=== PATIENT | female | born 1980 | race Caucasian/White ===

== ENCOUNTER 2017-11-10 14:26 | Inpatient (IN) | payer MEDICARE, OTHER ==
[~2017-11-10] VITALS: Ht 157.5 cm; Wt 91.6 kg
--- NOTE | 2017-11-10 14:39 | NUR ---
PT NOT IN WAITING ROOM WHEN CALLED FOR TRIAGE.
--- NOTE | 2017-11-10 15:30 | NUR ---
PATIENT IS SITTING UP ON THE GURNEY WITH NO COMPLAINS AT THIS TIME. SHE IS AMBULATORY WITH STEADY GAIT.
[2017-11-10] MEDS ORDERED: CLOZ25TA4 PO (15:31)
[2017-11-10] MEDS ORDERED: CARV3.122 PO (15:31)
[2017-11-10] MEDS ORDERED: SERT50TA PO (15:31)
[2017-11-10] MEDS ORDERED: OMEP20CA10 PO (15:31)
[2017-11-10] MEDS ORDERED: MAGN400T41 PO (15:31)
[2017-11-10] MEDS ORDERED: DIVA500T7 PO (15:31)
[2017-11-10] MEDS ORDERED: ROSU20TA PO (15:31)
[2017-11-10] MEDS ORDERED: FURO20TA4 PO (15:31)
[2017-11-10] MEDS ORDERED: METF500T6 PO (15:31)
[2017-11-10] MEDS ORDERED: CLOZ100T32 PO (15:31)
[2017-11-10 15:55] LABS: BASOPHILS # (AUTO) 0.1 K/uL (0.0-8.0); BASOPHILS % (AUTO) 0.8 % (0.0-2.0); EOSINOPHILS # (AUTO) 0.1 K/uL (0.0-0.7); HEMATOCRIT 42.6 % (31.2-41.9); HEMOGLOBIN 14.5 g/dL (10.9-14.3); LYMPHOCYTES # (AUTO) 1.9 K/uL (20.0-40.0); LYMPHOCYTES % (AUTO) 24.8 % (20.5-51.5); MEAN CORPUSCULAR HEMOGLOBIN 33.5 uug (24.7-32.8); MEAN CORPUSCULAR HGB CONC 34 g/dL (32.3-35.6); MONOCYTES # (AUTO) 0.4 K/uL (2.0-10.0); MONOCYTES % (AUTO) 5.8 % (0.0-11.0); NEUTROPHILS # (AUTO) 5.1 K/uL (1.8-8.9); NEUTROPHILS % (AUTO) 67.6 % (38.5-71.5); PLATELET COUNT (AUTO) 267 K/uL (179-408); RED BLOOD CELL COUNT(AUTO) 4.31 MIL/uL (3.63-4.92); WHITE BLOOD COUNT (AUTO) 7.6 K/uL (3.8-11.8)
[2017-11-10 16:02] LABS: BILIRUBIN,DIRECT 0.1 mg/dL (0.0-0.2); BILIRUBIN,TOTAL 0.5 mg/dL (0.2-1.0); CREATININE 0.7 mg/dL (0.6-1.3); POTASSIUM 3.3 mmol/L (3.5-5.1); TOTAL PROTEIN, SERUM 7.3 g/dL (6.4-8.2)
--- NOTE | 2017-11-10 16:04 | NUR ---
PATIENT ADIMENTLY REFUSES IV. NO IV MEDS OR FLUIDS ORDERED AT THIS TIME. DR NG NOTIFIED.
--- NOTE | 2017-11-10 16:37 | NUR ---
PATIENT IS EATING COOKIES IN HER ROOM.
--- NOTE | 2017-11-10 17:40 | NUR ---
PATIENT IS IN THE ROOM ON THE GURNEY AWAKE AND ALERT.
--- NOTE | 2017-11-10 19:12 | NUR ---
Received report from Teresa LA. Assumed care of patient.
--- NOTE | 2017-11-10 19:12 | NUR ---
REPORT GIVEN TO GPYSY LA
[2017-11-10 20:03] LABS: *BLOOD, URINE NEGATIVE (NEGATIVE); *CLARITY,URINE SLIGHTLY CLOUDY (CLEAR); *COLOR,URINE DARK YELLOW (YELLOW); *KETONES,URINE 2+ (NEGATIVE); *PROTEIN,URINE 1+ (NEGATIVE); LEUKOCYTE ESTERASE ,URINE NEGATIVE (NEGATIVE); NITRITE, URINE POSITIVE (NEGATIVE); UGLUCOSE NEGATIVE (NEGATIVE)
[2017-11-10 20:05] LABS: *BILIRUBIN,URIN 2+ (NEGATIVE)
[2017-11-10 20:06] LABS: BACTERIA,URINE NONE SEEN /HPF (NONE SEEN); RBC,URINE 0-3 /HPF (0-3); SQUAMOUS EPITHELIAL CELL,UR FEW /HPF (NONE SEEN); WBC,URINE 0-3 /HPF (0-3)
--- NOTE | 2017-11-10 20:29 | NUR ---
Passed report to Bhavana LA.
[2017-11-10] MEDS ORDERED: ACETAMINOPHEN 325 MG TABLET PO PRN (21:00)
[2017-11-10] MEDS ORDERED: CLOZAPINE 25 MG TABLET PO SCH (21:00)
[2017-11-10] MEDS ORDERED: MAGNESIUM HYDROXIDE 30 ML LIQUID UDC PO PRN (21:00)
[2017-11-10] MEDS ORDERED: CLOZAPINE 100 MG TABLET PO SCH (21:00)
[2017-11-10] MEDS ORDERED: Medication Not On Formulary EA (Rosuvastatin Calcium (Crestor) 20 MG) PO SCH (21:00)
[2017-11-10 21:09] VITALS: BP 140/84
[2017-11-10] MEDS: MAGNESIUM OXIDE 400 MG TABLET PO SCH (22:29)
[2017-11-10] MEDS: DOCUSATE SODIUM 100 MG CAPSULE PO SCH (22:29)
[2017-11-11 04:00] VITALS: BP 145/81
[2017-11-11 06:48] LABS: BASOPHILS % (AUTO) 0.5 % (0.0-2.0); EOSINOPHILS # (AUTO) 0.1 K/uL (0.0-0.7); EOSINOPHILS % (AUTO) 1.4 % (0.0-7.0); HEMATOCRIT 43.6 % (31.2-41.9); HEMOGLOBIN 14.5 g/dL (10.9-14.3); LYMPHOCYTES # (AUTO) 1.7 K/uL (20.0-40.0); LYMPHOCYTES % (AUTO) 22.8 % (20.5-51.5); MEAN CORPUSCULAR HEMOGLOBIN 33.1 uug (24.7-32.8); MEAN CORPUSCULAR HGB CONC 33 g/dL (32.3-35.6); MEAN CORPUSCULAR VOLUME 99.2 fL (75.5-95.3); MONOCYTES # (AUTO) 0.4 K/uL (2.0-10.0); MONOCYTES % (AUTO) 5.7 % (0.0-11.0); NEUTROPHILS # (AUTO) 5.1 K/uL (1.8-8.9); NEUTROPHILS % (AUTO) 69.6 % (38.5-71.5); PLATELET COUNT (AUTO) 289 K/uL (179-408); RED BLOOD CELL COUNT(AUTO) 4.39 MIL/uL (3.63-4.92); WHITE BLOOD COUNT (AUTO) 7.3 K/uL (3.8-11.8)
--- NOTE | 2017-11-11 07:08 | NUR ---
PT ALERT, ORIENTED BUT SOMETIMES OFF , PT DIDN'T TAKE MEDS, PT JUST STARE THE MEDS HOLDING AND TOUCHING THE PILLS AND DIDN'T TAKE IT. PT AMBULATORY, DENIES ANY PAIN OR VOMITING OVERNIGHT.VSS,AFEBRILE.
[2017-11-11 07:22] LABS: THYROID STIMULATING HORMONE 2.375 mIU/mL (0.358-3.740)
--- NOTE | 2017-11-11 07:35 | NUR ---
PT ALERT, ORIENTED BUT SOMETIMES OFF , PT TAKE MEDS, PT AMBULATORY, DENIES ANY PAIN OR VOMITING .VSS,AFEBRILE.CALL LIGHT WITH IN REACH
[2017-11-11] MEDS: METFORMIN HCL 500 MG TABLET PO SCH ×2 (07:38→17:08)
[2017-11-11] MEDS: PANTOPRAZOLE SODIUM 40 MG TABLET.DR PO SCH (07:38)
[2017-11-11] MEDS: CARVEDILOL 3.125 MG TABLET PO SCH ×2 (08:02→16:08)
[2017-11-11] MEDS: SERTRALINE HCL 50 MG TABLET PO SCH (08:02)
[2017-11-11] MEDS: FUROSEMIDE 20 MG TABLET PO SCH (08:02)
[2017-11-11 08:50] LABS: BILIRUBIN,TOTAL 0.5 mg/dL (0.2-1.0); CREATININE 0.7 mg/dL (0.6-1.3); MAGNESIUM 1.9 mg/dL (1.8-2.4); POTASSIUM 3.4 mmol/L (3.5-5.1); TOTAL PROTEIN, SERUM 7.2 g/dL (6.4-8.2)
[2017-11-11] MEDS: DIVALPROEX 500 MG TABLET.DR PO SCH ×2 (09:25→16:20)
[2017-11-11 11:01] VITALS: BP 129/97
[2017-11-11] MEDS ORDERED: POTASSIUM CHLORIDE 20 MEQ TAB.PRT.SR PO ONE (11:45)
[2017-11-11 15:00] VITALS: BP 107/62
--- NOTE | 2017-11-11 18:50 | NUR ---
PT SEEN BY DR BRO
--- NOTE | 2017-11-11 19:30 | NUR ---
RECEIVED PATIENT IN HER ROOM AWAKE VERBALLY RESPONSIVE, NO COMPLAIN OF ABDOMINAL PAIN AT THIS TIME. PATIENT STAY ON HER ROOM. CONT TO MONITOR,
[2017-11-11 20:00] VITALS: BP 125/96
[2017-11-11] MEDS: DOCUSATE SODIUM 100 MG CAPSULE PO SCH (20:38)
[2017-11-11] MEDS: ATORVASTATIN 40 MG TABLET PO SCH (20:39)
[2017-11-11] MEDS: MAGNESIUM OXIDE 400 MG TABLET PO SCH (20:55)
[2017-11-11] MEDS ORDERED: CLOZAPINE 100 MG TABLET PO SCH ×2 (21:00)
[2017-11-11] MEDS ORDERED: CLOZAPINE 25 MG TABLET PO SCH (21:00)
--- NOTE | 2017-11-12 05:52 | NUR ---
PATIENT SLEPT MOST OF THE NIGHT NO SOB NO CHEST PAIN, NO COMPLAIN OF PAIN, NO COMPLAIN OF ABDOMINAL PAIN, NO NAUSEA NOR VOMIITING NOTED, CONTINENT OF BOWEL AND BLADDER, KEPT COMFORTABLE, CALL LIGHT WITHIN REACH.
[2017-11-12] MEDS: PANTOPRAZOLE SODIUM 40 MG TABLET.DR PO SCH (06:17)
--- NOTE | 2017-11-12 07:35 | NUR ---
RECEIVED PATIENT IN HER BED SLEEPING VERBALLY RESPONSIVE, NO COMPLAIN OF ABDOMINAL PAIN AT THIS TIME. PATIENT STAY ON HER ROOM. CONT TO MONITOR, CALL LIGHT WITH IN REACH
[2017-11-12] MEDS: FUROSEMIDE 20 MG TABLET PO SCH (08:23)
[2017-11-12] MEDS: CARVEDILOL 3.125 MG TABLET PO SCH ×2 (08:23→16:03)
[2017-11-12] MEDS: SERTRALINE HCL 50 MG TABLET PO SCH (08:23)
[2017-11-12] MEDS: METFORMIN HCL 500 MG TABLET PO SCH ×2 (08:23→17:08)
[2017-11-12] MEDS: DIVALPROEX 500 MG TABLET.DR PO SCH ×2 (08:23→16:03)
[2017-11-12] MEDS: CLOZAPINE 100 MG TABLET PO SCH (08:27)
[2017-11-12] MEDS ORDERED: CLOZAPINE 25 MG TABLET PO SCH (09:00)
[2017-11-12 11:45] VITALS: BP 131/85
[2017-11-12 15:35] VITALS: BP 125/87
[2017-11-12 20:30] VITALS: BP 113/63
[2017-11-12] MEDS ORDERED: CLOZAPINE 100 MG TABLET PO SCH (21:00)
[2017-11-12] MEDS: MAGNESIUM OXIDE 400 MG TABLET PO SCH (22:23)
[2017-11-12] MEDS: ATORVASTATIN 40 MG TABLET PO SCH (22:23)
[2017-11-12] MEDS: DOCUSATE SODIUM 100 MG CAPSULE PO SCH (22:23)
[2017-11-13 04:00] VITALS: BP 131/92
[2017-11-13] MEDS: PANTOPRAZOLE SODIUM 40 MG TABLET.DR PO SCH (06:03)
--- NOTE | 2017-11-13 06:16 | NUR ---
PATIENT SLEPT GOOD LAST NIGHT, ASSISTED WITH TOILETING, AND HYGIENE, NO COMPLAIN OF ABDOMEN, ATE MEALS FAIRLY GOOD. CONT TO MONITOR.
[2017-11-13] MEDS: SERTRALINE HCL 50 MG TABLET PO SCH (08:17)
[2017-11-13] MEDS: CARVEDILOL 3.125 MG TABLET PO SCH ×2 (08:17→16:26)
[2017-11-13] MEDS: FUROSEMIDE 20 MG TABLET PO SCH (08:17)
[2017-11-13] MEDS: DIVALPROEX 500 MG TABLET.DR PO SCH ×3 (08:17→16:26)
[2017-11-13] MEDS: METFORMIN HCL 500 MG TABLET PO SCH ×2 (08:17→18:00)
[2017-11-13] MEDS: CLOZAPINE 100 MG TABLET PO SCH (08:23)
[2017-11-13] MEDS ORDERED: CHOLECALCIFEROL 1,000 UNIT TABLET PO SCH (09:00)
[2017-11-13 11:50] VITALS: BP 123/77
[2017-11-13] MEDS ORDERED: CLOZ100T PO ×2 (15:25)
[2017-11-13] MEDS ORDERED: DIVA500T2 PO (15:25)
[2017-11-13] MEDS ORDERED: ATOR20TA PO (15:25)
[2017-11-13] MEDS ORDERED: DOCU100C36 PO (15:25)
[2017-11-13] MEDS ORDERED: MAGN400O6 PO (15:25)
[2017-11-13] MEDS ORDERED: METF500T6 PO (15:25)
[2017-11-13] MEDS ORDERED: ACET325T53 PO (15:25)
[2017-11-13] MEDS ORDERED: CHOL10002 PO (15:25)
[2017-11-13 15:44] VITALS: BP 130/76
[2017-11-13 16:26] VITALS: BP 132/66
--- NOTE | 2017-11-13 19:57 | NUR ---
DISCHARGE PATIENT TO [facility] PER MD ORDERS
== END 2017-11-13 19:55 | DRG 693 ==
LOC: ER 14:27 → MED 20:33
PROVIDERS: ADMIT Internal Medicine; ATTEND Internal Medicine
DX: N20.0 Calculus of kidney (principal); G93.40 Encephalopathy, unspecified; E66.01 Morbid (severe) obesity due to excess calories; E88.09 Other disorders of plasma-protein metabolism, not elsewhere classified; F20.0 Paranoid schizophrenia; R16.0 Hepatomegaly, not elsewhere classified; E55.9 Vitamin D deficiency, unspecified; E87.6 Hypokalemia; D25.9 Leiomyoma of uterus, unspecified; F25.9 Schizoaffective disorder, unspecified; R10.9 Unspecified abdominal pain; E11.9 Type 2 diabetes mellitus without complications; D75.89 Other specified diseases of blood and blood-forming organs; E78.5 Hyperlipidemia, unspecified; Z68.36 Body mass index [BMI] 36.0-36.9, adult; I11.9 Hypertensive heart disease without heart failure; F17.210 Nicotine dependence, cigarettes, uncomplicated; F31.9 Bipolar disorder, unspecified
CPT/HCPCS: 36415; 70030-TC; 71045; 80164; 82306; 83605; 83690; 83735; 84100; 84443; 84703; 85025; 85730; 87040; 87086; 93005; A4663

== ENCOUNTER 2017-12-29 22:23 | Inpatient (IN) | payer MEDICARE, OTHER ==
[~2017-12-29] VITALS: Ht 157.5 cm; Wt 89.4 kg
[~2017-12-29 22:23] MED LIST: ACET325T53 PO; ATOR20TA PO; CARV3.122 PO; CHOL10002 PO; CLOZ100T PO; DIVA500T2 PO; DOCU100C36 PO; FURO20TA4 PO; MAGN400O6 PO; MAGN400T41 PO; METF500T6 PO; OMEP20CA10 PO; SERT50TA PO
--- NOTE | 2017-12-29 23:37 | NUR ---
HADOOP CONSULTANT AT BEDSIDE OBTAINING LAB SPECIMENS FOR TESTING
[2017-12-30 00:09] LABS: BASOPHILS # (AUTO) 0.1 K/uL (0.0-8.0); BASOPHILS % (AUTO) 0.9 % (0.0-2.0); EOSINOPHILS # (AUTO) 0.2 K/uL (0.0-0.7); EOSINOPHILS % (AUTO) 2.3 % (0.0-7.0); HEMATOCRIT 43.7 % (31.2-41.9); LYMPHOCYTES % (AUTO) 30.1 % (20.5-51.5); MEAN CORPUSCULAR HEMOGLOBIN 33.8 uug (24.7-32.8); MEAN CORPUSCULAR HGB CONC 34 g/dL (32.3-35.6); MEAN CORPUSCULAR VOLUME 98.6 fL (75.5-95.3); MONOCYTES # (AUTO) 0.6 K/uL (2.0-10.0); MONOCYTES % (AUTO) 5.8 % (0.0-11.0); NEUTROPHILS # (AUTO) 6.1 K/uL (1.8-8.9); NEUTROPHILS % (AUTO) 60.9 % (38.5-71.5); PLATELET COUNT (AUTO) 326 K/uL (179-408); RED BLOOD CELL COUNT(AUTO) 4.44 MIL/uL (3.63-4.92)
[2017-12-30 00:10] LABS: *BILIRUBIN,URIN NEGATIVE (NEGATIVE); *BLOOD, URINE 3+ (NEGATIVE); *CLARITY,URINE CLEAR (CLEAR); *COLOR,URINE YELLOW (YELLOW); *KETONES,URINE NEGATIVE (NEGATIVE); *PROTEIN,URINE NEGATIVE (NEGATIVE); *UROBILINOGEN,URINE 0.2 E.U./dl (NORMAL); LEUKOCYTE ESTERASE ,URINE NEGATIVE (NEGATIVE); NITRITE, URINE NEGATIVE (NEGATIVE); UGLUCOSE NEGATIVE (NEGATIVE)
[2017-12-30 00:13] LABS: BILIRUBIN,DIRECT 0.1 mg/dL (0.0-0.2); BILIRUBIN,TOTAL 0.2 mg/dL (0.2-1.0); CREATININE 0.7 mg/dL (0.6-1.3); POTASSIUM 3.2 mmol/L (3.5-5.1); TOTAL PROTEIN, SERUM 7.2 g/dL (6.4-8.2)
[2017-12-30 00:18] LABS: BACTERIA,URINE NONE SEEN /HPF (NONE SEEN); WBC,URINE 0-3 /HPF (0-3)
[2017-12-30 00:19] LABS: *URINE HCG, QUAL NEGATIVE (NEGATIVE); SQUAMOUS EPITHELIAL CELL,UR FEW /HPF (NONE SEEN)
--- NOTE | 2017-12-30 01:20 | NUR ---
PT REFUSES CT SCAN. MADE AWARE.
--- NOTE | 2017-12-30 02:33 | NUR ---
PT BEING ADMITTED TO [facility] FLOOR RM# [id number]. REPORT GIVEN TO ABHINAV MERCADO.
--- NOTE | 2017-12-30 02:47 | NUR ---
Received pt alert and disoriented to time and place. No s/s of distress noted at this time. Pertinent assessments done. BP noted to be elevated. Will call MD for orders. Unit orientation provided. Bed in low, locked position. Call light within reach. Will continue to monitor closely.
--- NOTE | 2017-12-30 02:50 | NUR ---
Pt. admitted to [facility], under care of Dr. YOUNG Belongs List completed
[2017-12-30 03:14] VITALS: BP 162/109
[2017-12-30] MEDS ORDERED: CLONIDINE HCL 0.1 MG TABLET PO PRN (04:15)
[2017-12-30 05:20] VITALS: BP 167/109
[2017-12-30] MEDS ORDERED: MAGNESIUM HYDROXIDE 30 ML LIQUID UDC PO PRN (05:45)
[2017-12-30] MEDS ORDERED: hydrALAZINE HCL 25 MG TABLET PO PRN (05:45)
[2017-12-30] MEDS ORDERED: ACETAMINOPHEN 325 MG TABLET PO PRN (05:45)
--- NOTE | 2017-12-30 06:00 | NUR ---
Pt is noted to be confused and restless at this time. Frequent reorientation and relaxation techniques provided. Pt refused morning medications and morning lab orders. Will endorse to day shift nurse accordingly.
[2017-12-30] MEDS ORDERED: PANTOPRAZOLE SODIUM 40 MG TABLET.DR PO SCH (07:00)
[2017-12-30] MEDS: CARVEDILOL 3.125 MG TABLET PO SCH ×2 (08:43→16:03)
[2017-12-30] MEDS: DIVALPROEX 500 MG TABLET.DR PO SCH ×3 (08:43→16:02)
[2017-12-30 09:00] VITALS: BP 99/47
[2017-12-30] MEDS ORDERED: FUROSEMIDE 20 MG TABLET PO SCH (09:00)
[2017-12-30] MEDS ORDERED: SERTRALINE HCL 50 MG TABLET PO SCH (09:00)
[2017-12-30] MEDS ORDERED: METFORMIN HCL 500 MG TABLET PO SCH (09:00)
--- NOTE | 2017-12-30 09:00 | NUR ---
DR AMEZCUA SEE PATIENT AND ORDER OK TO D/C HOME TODAY AND KIT ASSEMBLER WILL WORKING ON D/C HOME TODAY IF THE BED AVAILABLE
[2017-12-30] MEDS ORDERED: LORAZEPAM 1 MG TABLET PO STA (10:36)
[2017-12-30 12:00] VITALS: BP 104/68
--- NOTE | 2017-12-30 12:00 | NUR ---
ASSIST TO TAKE SHR THIS AFTERNOON DOING WELL AND EAT LUNCH WITH GOOD APPETITE
--- NOTE | 2017-12-30 14:45 | NUR ---
Received PT asleep in bed. No signs of SOB or distress. No complain of pain noted at the time. V/S are stable. Provided safety measures. Side rails up and call light within reach. Will continue to monitor.
--- NOTE | 2017-12-30 15:00 | NUR ---
PATIENT WILL GO TO BOARDING CARE AFTER 4PM TODAY AND WILL PICK HER UP ALL HER OWN MEDICINE FROM [facility] GIVEN PRIOR D/C HOME TODAY D/C INSTRUCTION INFORM TO PATIENT AND [employer]ES [employer] ASSOCIATE
[2017-12-30 15:38] VITALS: BP 109/54
[2017-12-30 16:03] VITALS: BP 109/52
--- NOTE | 2017-12-30 17:28 | NUR ---
PT discharge to board and care. Designated dinkey driver picked up PT. Meds and discharge papers were given to dinkey driver. No s/s of SOB. No complain of pain noted at the time. No signs of distress. V/S within normal limits. PT left with all items that were brought. Board and care are aware that PT is on the way.
[2017-12-30] MEDS ORDERED: DOCUSATE SODIUM 100 MG CAPSULE PO SCH ×2 (21:00)
[2017-12-30] MEDS ORDERED: ATORVASTATIN 20 MG TABLET PO SCH (21:00)
== END 2017-12-30 17:25 | DRG 392 ==
LOC: ER 22:27 → MED 12-30 02:20
PROVIDERS: ADMIT Internal Medicine; ATTEND Internal Medicine
DX: K29.70 Gastritis, unspecified, without bleeding (principal); E44.0 Moderate protein-calorie malnutrition; I11.0 Hypertensive heart disease with heart failure; E88.09 Other disorders of plasma-protein metabolism, not elsewhere classified; I50.9 Heart failure, unspecified; K76.0 Fatty (change of) liver, not elsewhere classified; F20.0 Paranoid schizophrenia; E66.9 Obesity, unspecified; E87.6 Hypokalemia; F17.200 Nicotine dependence, unspecified, uncomplicated; N20.0 Calculus of kidney; Z68.36 Body mass index [BMI] 36.0-36.9, adult; E11.9 Type 2 diabetes mellitus without complications; Z79.84 Long term (current) use of oral hypoglycemic drugs
CPT/HCPCS: 36415; 70030-TC; 83690; 84703; 85025; 85730; 87086; A4663